=== PATIENT | male | born 1940 | race American Indian/Alaskan Native ===

== ENCOUNTER 2017-08-13 00:10 | Emergency (ER) | payer BC, MEDICARE ==
[2017-08-13 02:31] VITALS: BP 133/74
--- NOTE | 2017-08-13 05:15 | Emergency Department Report ---
- General Chief complaint: Skin Rash Stated complaint: POISON REJI Time Seen by Provider: 08/13/17 05:11 Source: patient Mode of arrival: Ambulatory Limitations: No Limitations - History of Present Illness Initial comments: 77-year-old man presents with 3-4 day history of right arm reaction to poison oak, which patient had exposure to several days ago while cleaning his yard. He has significant lesions, with swelling, vesicles, and drainage of his right anterior forearm and also has minor papular eruption is left anterior distal forearm. He has no rash elsewhere, and no other symptoms. He has no pain, no fever chills or diaphoresis, no other organ system complaints. Past medical history significant for type 2 diabetes, controlled with metformin , he does not use insulin. He checks his blood sugars once weekly. - Related Data Home Medications Medication Instructions Recorded Confirmed Last Taken Lisinopril [Zestril] 20 mg PO QDAY 08/13/17 08/13/17 1 Day Ago ~08/12/17 Metformin HCl 500 mg PO BID 08/13/17 08/13/17 1 Day Ago ~08/12/17 Simvastatin 40 mg PO DAILY 08/13/17 08/13/17 1 Day Ago ~08/12/17 Previous Rx's Medication Instructions Recorded Last Taken Type Prednisone [predniSONE 10 mg 10 mg PO .TAPER #1 tab.ds.pk 08/13/17 Unknown Rx (6-Day Pack, 21 Tabs)] Allergies Allergy/AdvReac Type Severity Reaction Status Date / Time No Known Allergies Allergy Unverified 08/13/17 02:23 Abscess Boil HPI - HPI Chief Complaint: Skin Rash Stated Complaint: POISON REJI Time Seen by Provider: 08/13/17 05:11 Home Medications: Home Medications Medication Instructions Recorded Confirmed Last Taken Lisinopril [Zestril] 20 mg PO QDAY 08/13/17 08/13/17 1 Day Ago ~08/12/17 Metformin HCl 500 mg PO BID 08/13/17 08/13/17 1 Day Ago ~08/12/17 Simvastatin 40 mg PO DAILY 08/13/17 08/13/17 1 Day Ago ~08/12/17 Previous Rx's Medication Instructions Recorded Last Taken Type Prednisone [predniSONE 10 mg 10 mg PO .TAPER #1 tab.ds.pk 08/13/17 Unknown Rx (6-Day Pack, 21 Tabs)] Allergies/Adverse Reactions: Allergies Allergy/AdvReac Type Severity Reaction Status Date / Time No Known Allergies Allergy Unverified 08/13/17 02:23 ED Review of Systems ROS: Stated complaint: POISON REJI Other details as noted in HPI Comment: All other systems reviewed and negative Constitutional: denies: chills, fever ENT: denies: ear pain, throat pain Respiratory: denies: cough, shortness of breath, wheezing Cardiovascular: denies: chest pain, palpitations Endocrine: no symptoms reported Gastrointestinal: denies: abdominal pain, nausea, diarrhea Skin: as per HPI Neurological: denies: headache, weakness, paresthesias Psychiatric: denies: anxiety, depression Hematological/Lymphatic: denies: easy bleeding, easy bruising ED Past Medical Hx - Past Medical History Previous Medical History?: Yes Hx Hypertension: Yes Hx Diabetes: Yes - Social History Smoking Status: Never Smoker Substance Use Type: None - Medications Home Medications: Home Medications Medication Instructions Recorded Confirmed Last Taken Type Lisinopril [Zestril] 20 mg PO QDAY 08/13/17 08/13/17 1 Day Ago History ~08/12/17 Metformin HCl 500 mg PO BID 08/13/17 08/13/17 1 Day Ago History ~08/12/17 Prednisone [predniSONE 10 mg 10 mg PO .TAPER #1 tab.ds.pk 08/13/17 Unknown Rx (6-Day Pack, 21 Tabs)] Simvastatin 40 mg PO DAILY 08/13/17 08/13/17 1 Day Ago History ~08/12/17 ED Physical Exam - General Limitations: No Limitations General appearance: alert, in no apparent distress - Head Head exam: Present: atraumatic, normocephalic - ENT ENT exam: Present: normal exam, mucous membranes moist - Neck Neck exam: Present: normal inspection - Respiratory Respiratory exam: Present: normal lung sounds bilaterally. Absent: respiratory distress, chest wall tenderness - Cardiovascular Cardiovascular Exam: Present: regular rate, normal heart sounds - GI/Abdominal GI/Abdominal exam: Present: soft, normal bowel sounds. Absent: tenderness - Extremities Exam Extremities exam: Present: full ROM, other (moderate chronic appearing skin eruption right anterior forearm, with vesicular blebs, some open, minor weeping , no overt infection or pus. Minor papules left anterior forearm). Absent: tenderness, joint swelling - Neurological Exam Neurological exam: Present: alert, oriented X3 - Psychiatric Psychiatric exam: Present: normal affect, normal mood - Skin Skin exam: Present: rash (as noted above in extremity section) ED Course Vital Signs 08/13/17 08/13/17 02:24 03:31 Temperature 36.5 C Pulse Rate 62 Respiratory 20 18 Rate Blood Pressure 133/74 O2 Sat by Pulse 98 98 Oximetry ED Medical Decision Making - Medical Decision Making Patient has a significant contact dermatitis right forearm, which has been unresponsive to oral Benadryl and topical cream. He needs steroids, the patient is reluctant to consider prolonged use for a week, referring to his sister who has marked edema as result of chronic steroid use, and it took some time to reassure patient that he would not his reaction of his sister, that he would only be on medication for about a week. Patient was advised that his sugar level would rise while he was under steroid treatment, but would revert back to his normal levels once the medication had finished. Critical Care Time: No Critical care attestation.: If time is entered above; I have spent that time in minutes in the direct care of this critically ill patient, excluding procedure time. 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 The Benadryl makes her too drowsy, he may take a nonsedating antihistamine such as Zyrtec or Claritin. Take steroids until they're all gone, and be aware that her blood sugar will rise temporarily while you're taken steroids, but will revert back to normal once she has completed your course. Check with your doctor if you have any persistent of significant rash after 7- 10 days, or if it is not improving significantly, or if he have any significant rebound or recurrence affect. Prescriptions: Prednisone [predniSONE 10 mg (6-Day Pack, 21 Tabs)] 10 mg PO .TAPER #1 tab.dsjia Referrals: AZAR ONEILL [Other] - 3-5 Days Time of Disposition: 05:18
[2017-08-13] MEDS ORDERED: DECADRON IM ONE (05:18)
== END 2017-08-13 05:41 | disposition home or self-care (01) ==
LOC: ED 00:10
DX: L25.5 Unspecified contact dermatitis due to plants, except food (principal); I10 Essential (primary) hypertension; E11.9 Type 2 diabetes mellitus without complications
CPT/HCPCS: 96372; 99282; J1100